=== PATIENT | female | born 1970 | race Caucasian/White ===

== ENCOUNTER 2021-07-08 19:35 | Emergency (ER) | payer OTHER, SELFPAY ==
[2021-07-08 19:53] VITALS: BMI 22.0
--- NOTE | 2021-07-08 20:29 | W.ED.WOUNDLC ---
HPI - Wound/Laceration General: Chief Complaint: Wound/Laceration Stated Complaint: LEFT HAND LAC Time Seen by Provider: 07/08/21 20:29 History of Present Illness: HPI narrative: 50-year-old female comes in with injury to the left palmar hand. Patient was working on a ladder and the drill slipped from the stand causing her to reach out and grab it. Patient states then it punctured her left palmar hand along the fifth metacarpal. Patient has no reduction in movement of the hand. Bleeding is controlled. Patient reports that she has had a tetanus shot within the last 10 years but cannot recall the exact. And agrees to tetanus vaccine. Review of Systems General: Reports: 10 or more systems reviewed and unremarkable except in HPI and below Skin/Breast: Reports: other (Puncture wound hand.) Physical Exam Const: COMMON NORMALS: no acute distress and patient oriented x3 GENERAL APPEARANCE: cooperative HENMT: COMMON NORMALS: normocephalic and Normal external nose present HEAD & SCALP: normal to inspection and normocephalic NOSE: Normal external nose present Eye: GENERAL EYE: appearance normal, both eyes and all related structures Neck/C-Spine: COMMON NORMALS: full ROM Chest: COMMONS NORMALS: normal inspection of the chest Resp: COMMON NORMALS: normal respiratory effort EFFORT & INSPECTION: Yes able to speak in complete sentences Cardio: COMMON NORMALS: regular rate and regular rhythm RATE: regular rate RHYTHM: regular rhythm GI: COMMON NORMALS: non-tender Extremity: COMMON NORMALS: normal to inspection Neuro: COMMON NORMALS: patient oriented x3 and moves all extremities Psych: COMMON NORMALS: mental status grossly normal and cooperative Skin: NARRATIVE SKIN EXAM: 2 cm laceration to left palmar hand. Procedures Laceration Laceration 1: Site: hand Side (If applicable): left Size (cm): 2 Description: irregular Depth: simple, single layer Local Anesthetic: lidocaine 1% Amount of anesthesia used (mL): 3 Pre-repair: wound explored, irrigated extensively and deep structures intact Skin layer closed with: nylon Size (cm): 4-0 Number of sutures: 3 Technique: simple, interrupted and horizontal mattress Course Vital Signs: Vital signs: Vital Signs Respiratory Rate 16 07/08/21 21:03 MDM - Wound/Laceration MDM Narrative: Medical decision making narrative: Patient comes in for laceration to the left palmar hand. Patient reports that the drill bit went into her hand causing a puncture wound. Patient has normal range of motion. Normal sensation good strength distally to the injury. There is a 2 cm laceration to the palmar left hand. Differential diagnosis includes foreign body, need for prophylaxis tetanus and antibiotic, laceration. No sign of foreign body or underlying fracture was noted. Wound was loosely closed with 2 sutures for approximation of skin tissue. Patient will be given Augmentin 1 tablet twice a day for the next 7 days. Patient was recommended to have sutures removed in 7 to 10 days. Patient's tetanus was updated. Discharge Plan Discharge Patient Disposition: Home Clinical Impression: Puncture wound of hand Qualifiers: Encounter type: initial encounter Foreign body presence: without foreign body Laterality: left Qualified Code(s): S61.432A - Puncture wound without foreign body of left hand, initial encounter Condition: Stable Prescriptions: New Augmentin 875-125 mg tablet 1 tab PO BID Qty: 14 RF: 0 Discharge Orders: Discharge ED (Routine); Ordered 07/08/21 Ordered By: Jeison Patel Referrals: Jeison Corona Jr, CRNA [Primary Care Provider] - Discharge Diet: Usual diet Discharge Activity: Increase activity as tolerated Patient Instructions: Suture Care (ED), Opioid Safety Activity Restrictions/Additional Instructions: Home and rest. Keep wound clean and dry. It is important keep the wound dry as possible especially for the next 2 days. After that you can wash it gently with some mild soap and water, take antibiotic twice a day for the next 7 days. Sutures need to come out in 7 to 10 days. Try not to submerge hand under water for long periods of time. Follow-up with primary care as needed. Return to the ER for high fever, worsening swelling and pain, or new concerns. Coding Level of Care Code ED [employer] for [employer]
[2021-07-08] MEDS: tetanus-dipt-pertussis 0.5 mL SDV IM (20:42)
[2021-07-08] MEDS: amoxicillin-clav 875-125 mg Tablet 1 TAB PO (21:02)
[2021-07-08 21:03] VITALS: RESP 16
== END 2021-07-08 21:04 | disposition home or self-care (01) ==
PROVIDERS: Emergency Provider Nurse Practitioner Family; PCP Nurse Anesthetist, Certified Registered
DX: S61.432A Puncture wound without foreign body of left hand, initial encounter (principal); W22.8XXA Striking against or struck by other objects, initial encounter
CPT/HCPCS: 12001; 87635; 90471; 90715; 99283

== ENCOUNTER 2022-02-04 08:48 | Outpatient (CLI) | payer OTHER, SELFPAY ==
--- NOTE | 2022-02-04 08:56 | MM_ITS ---
WS: [id number] BILATERAL SCREENING 3D TOMOSYNTHESIS DIGITAL MAMMOGRAM WITH CAD HISTORY: SCREENING COMPARISON: 08/01/2019 and 07/30/2015 Bilateral CC and MLO views submitted. Computer aided detection analyzed. Breast composition: There are scattered areas of fibroglandular density. No suspicious masses, microc alcifications or architectural distortion. Significant improvement in the dense asymmetry in the uppe r outer quadrant of the LEFT breast as seen on prior mammograms. Normally including soft tissue is id entified. Benign calcifications in each breast. MM/[id number] IMPRESSION: BI-RADS: 2-Benign FOLLOW UP: 1 Year Follow-up
== END 2022-02-04 08:49 | disposition home or self-care (01) ==
LOC: RADSHAW 08:51
PROVIDERS: PCP Family Medicine; Visit Provider Family Medicine
DX: Z12.31 Encounter for screening mammogram for malignant neoplasm of breast (principal)
CPT/HCPCS: 77063; 77067